=== PATIENT | male | born 1980 | race Caucasian/White ===

== ENCOUNTER 2022-07-19 00:50 | Emergency (ER) | payer BC ==
[~2022-07-19] VITALS: Ht 177.8 cm; Wt 82.0 kg
[2022-07-19] MEDS ORDERED: HYDROCODONE/ACETAMINOPHEN 5/325MG TABLET PO ONE (03:15)
[2022-07-19] MEDS ORDERED: HYDROCODONE/ACETAMINOPHEN 5/325MG TABLET PO NR (05:45)
[2022-07-19] MEDS ORDERED: TOPUD PO ×2 (06:28)
[2022-07-19] MEDS ORDERED: LIDOCAINE HCL/PF 1% 10 MG/ML 5ML VIAL INFIL ONE (07:15)
[2022-07-19 07:18] VITALS: BP 114/75
[2022-07-19] MEDS ORDERED: IBUP-2028 PO (08:14)
[2022-07-19] MEDS ORDERED: T3 PO (08:14)
== END 2022-07-19 08:46 | disposition home or self-care (01) ==
LOC: ER 00:50
DX: S02.2XXA Fracture of nasal bones, initial encounter for closed fracture (principal); S22.42XA Multiple fractures of ribs, left side, initial encounter for closed fracture; S01.111A Laceration without foreign body of right eyelid and periocular area, initial encounter; S80.02XA Contusion of left knee, initial encounter; V43.52XA Car driver injured in collision with other type car in traffic accident, initial encounter; W22.11XA Striking against or struck by driver side automobile airbag, initial encounter; Y93.89 Activity, other specified; Y92.488 Other paved roadways as the place of occurrence of the external cause
CPT/HCPCS: 70450; 70486; 71045; 72125; 73560; 93005; 99291; J3490